=== PATIENT | male | born 1965 | race Caucasian/White ===

== ENCOUNTER 2020-12-17 10:27 | Emergency (ER) | payer SELFPAY ==
[2020-12-17] MEDS ORDERED: Ketorolac 30 MG/ML SDV IVPUSH ONE (10:51)
[2020-12-17] MEDS ORDERED: Sodium Chloride 0.9% 10 ML Syringe FLUSH PRN (10:51)
[2020-12-17] MEDS ORDERED: Sodium Chloride 0.9% 2.5 ML Syringe FLUSH PRN (10:51)
[2020-12-17] MEDS ORDERED: Sodium Chloride 0.9% 1,000 ML IV ONE (10:51)
--- NOTE | 2020-12-17 10:54 | EDM.PDOC ---
ED HPI GENERAL MEDICAL PROBLEM - General Chief Complaint: Abdominal Pain Stated Complaint: CHEST PAIN Time Seen by Provider: 12/17/20 10:38 Source of Information: Reports: Patient History Limitations: Reports: No Limitations - History of Present Illness INITIAL COMMENTS - FREE TEXT/NARRATIVE: HISTORY AND PHYSICAL: History of present illness: The patient is a 55-year-old male with no significant health history who presents to the emergency room with generalized abdominal pain for the last 4 days. The patient states that he has been having generalized abdominal pain for the last 4 to 5 months. Typically the pain lasts anywhere from 1 to 4 days and goes away on its own. He states that having a stool sometimes helps the pain or if he bends over or lays down the pain will ease up. Patient classifies the pain as a dull ache and states it moves all over his abdomen. His sister is here visiting and has been taking his blood pressure which they are also concerned about. Patient denies any fever, chills, headache, change in vision, syncope or near syncope. Denies any chest pain, back pain, shortness of breath or cough. Denies any nausea, vomiting, diarrhea, constipation or dysuria. Has not noted any blood in urine or stool. Patient has been eating and drinking appropriately. Review of systems: As per history of present illness and below otherwise all systems reviewed and negative. Past medical history: As per history of present illness and as reviewed below otherwise noncontributory. Surgical history: As per history of present illness and as reviewed below otherwise noncontributory. Social history: See social history for further information Family history: As per history of present illness and as reviewed below otherwise noncontributory. Physical exam: General: Well developed and well nourished. Alert and orientated x 3. Nontoxic in appearance and in no acute distress. Vital signs are stable and have been reviewed by me. Nursing notes were reviewed. HEENT: Atraumatic, normocephalic, pupils equal and reactive bilaterally, negative for conjunctival pallor or scleral icterus, mucous membranes moist, TMs normal bilaterally, throat clear, neck supple, nontender, trachea midline. No drooling or trismus noted. No meningeal signs. No hot potato voice noted. Lungs: Clear to auscultation bilaterally. No wheezes, rales, or rhonchi. Chest nontender. Normal work of breathing, no accessory muscles used. Heart: S1S2, regular rate and rhythm without overt murmur, gallops, or rubs. No JVD. No peripheral edema Abdomen: Firm, round, nontender. Normoactive bowel sounds. Negative for costovertebral tenderness. Noted reducible umbilical hernia. Skin: Intact, warm, dry. No lesions or rashes noted. Hematologic: No petechiae or purpra. Mucosa appropriate color and normal nail bed color and refill. Extremities: Atraumatic, moves all extremities per self without difficulty or deficits, negative for cords or calf pain. Neurovascular unremarkable. Neuro: Awake, alert, oriented. Cranial nerves II through XII unremarkable. Cerebellum unremarkable. Motor and sensory unremarkable throughout. Exam nonfocal. Psychiatric: Mood and affect are appropriate. Normal thought process. Answering questions appropriately. Notes: *This patient was seen and evaluated during the 2019 SARS-CoV-2 novel coronavirus pandemic period. Community viral transmission is ongoing at time of this encounter and the emergency department is operating under pandemic response procedures. The patient states that he does not have any primary care provider and has not seen anyone regarding his abdominal pain. His sister is visiting and would like for him to get it checked out. His physical exam is benign. He really has no abdominal tenderness and has an reducible umbilical hernia. He states this is long-term. The patient is agreeable to blood work and a CT. I will give him fluids and treat his pain with Toradol as the patient is allergic to codeine. 11:52 the patient's glucose is 222 and the patient does not have any history of diabetes. The patient states that he does drink a lot of sugary type fluid such as cola, and his alcohol. I have ordered an A1C and if elevated will start the patient on Metformin. The patient verbalizes understanding. Patient also states that his pain is much better. There is a delay in obtaining the abdominal CT due to other emergencies. The patient was educated on this. 13:05 The patient returned from CT with increase complaints of pain. I will order Dilaudid for his pain control. 13:54 the patient's A1c is 7.7 and I have advised him of these results. I will start the patient on Metformin 500 mg at bedtime. The patient will be put on the primary care follow-up list. Awaiting CT reading. 13:[address] IMPRESSION: 1. 4.7 cm fat containing anterior pelvic wall periumbilical hernia with the fat within this hernia containing fluid and soft tissue stranding suggesting it could be mildly inflamed. Clinical correlation recommended. No bowel loops extend into this hernia. 2. Moderate diffuse fatty infiltration of liver. 3. Few tiny nodules in the right lower lobe of the lung posteriorly likely benign. 4. Small fat containing bilateral inguinal hernias. Colonic diverticulosis without evidence diverticulitis. I spoke with Dr. Mcgraw regarding the patient's examination and lab work and CT results, Dr. Mcgraw will be coming to the ER to examine the patient. Upon telling the patient this the patient states that now his pain has migrated to his umbilical area. Dr. Mcgraw examined the patient and states the patient can be discharged and that the umbilical hernia does not need to be repaired at this time. I will discharge the patient with a prescription for Metformin to take at dinnertime. I will put him on a primary care follow-up list. I have done education on appropriate diabetic management with the patient. The patient is agreeable with the plan. I have talked with the patient about today's findings, in addition to providing specific details for plan of care. Reassessment at the time of disposition demonstrates that the patient is in no acute distress. The patient is stable for discharge, counseling was provided and we discussed in great detail signs and symptoms that would prompt them to return to the Emergency Department. Medication, follow up and supportive care measures were reviewed and discussed. Voices understanding and is agreeable to plan of care. Denies any further questions or concerns at this time. Diagnostics: CBC, CMP, lipase, UA, CT abdomen Therapeutics: Fluids, Toradol, Dilaudid Prescription: Metformin 500 mg p.o. at bedtime Impression: Umbilical hernia, abdominal pain, new-onset diabetes type 2 Plan: 1. You were evaluated today on an emergent basis. Your complaints of abdominal pain were evaluated with blood work and a abdominal CAT scan. Your blood work revealed you have type 2 diabetes. I am starting you on Metformin 500 mg by mouth to take with dinner. You need to follow-up with a primary care provider. I have put you on a list and you should expect a phone call sometime this coming week for a primary care provider follow-up. You need to stay away from sugar and any foods that contain sugar such as cola or even bread. You need to stay away from alcohol as this too can increase your blood sugar. You were evaluated for an umbilical hernia which was found to be reducible and does not need to be treated today. I have sent your prescription for Metformin over to the pharmacy. 2. You can alternate Tylenol and ibuprofen as needed for pain and fever management. 3. We encourage you to follow up with your primary care provider and/or recommended specialist in the next few days for re-evaluation and further ca re/management. 4. If your symptoms should worsen, new symptoms develop or any of the signs and symptoms we discussed should arise please return to the emergency room or call 911 (if needed). Definitive disposition and diagnosis as appropriate pending reevaluation and review of above. Abdominal Pain Score (Numeric/FACES): 8 - Related Data Allergies Allergy/AdvReac Type Severity Reaction Status Date / Time codeine Allergy Itching Verified 12/17/20 11:40 Home Meds: Home Meds metFORMIN [Glucophage XR] 500 mg PO WITHDINNER 30 Days #30 tab.er 12/17/20 [Rx] ED ROS GENERAL - Review of Systems Review Of Systems: Comprehensive ROS is negative, except as noted in HPI. ED EXAM, GI/ABD - Physical Exam Exam: See Below (See dictation) Course - Vital Signs Last Recorded V/S: Last Vital Signs Temp 96.8 F L 12/17/20 10:35 Pulse 62 12/17/20 15:17 Resp 16 12/17/20 15:17 BP 159/108 H 12/17/20 15:17 Pulse Ox 94 L 12/17/20 15:17 - Orders/Labs/Meds Orders: Active Orders 24 hr Category Date Time Status CULTURE URINE [MREF] Stat Lab 12/17/20 11:55 Received Saline Lock Insert [OM.PC] Stat Oth 12/17/20 10:51 Ordered Labs: Laboratory Tests 12/17/20 12/17/20 12/17/20 Range/Units 11:01 11:01 11:01 WBC 8.84 (4.0-11.0) K/uL RBC 4.90 (4.50-5.90) M/uL Hgb 16.4 (13.0-17.0) g/dL Hct 48.8 (38.0-50.0) % MCV 99.6 H (80.0-98.0) fL MCH 33.5 H (27.0-32.0) pg MCHC 33.6 (31.0-37.0) g/dL RDW Std Deviation 47.4 (28.0-62.0) fl RDW Coeff of Akil 13 (11.0-15.0) % Plt Count 166 (150-400) K/uL MPV 11.20 (7.40-12.00) fL Neut % (Auto) 67.1 (48.0-80.0) % Lymph % (Auto) 18.3 (16.0-40.0) % [place] % (Auto) 9.4 (0.0-15.0) % Eos % (Auto) 4.5 (0.0-7.0) % Baso % (Auto) 0.7 (0.0-1.5) % Neut # (Auto) 5.9 H (1.4-5.7) K/uL Lymph # (Auto) 1.6 (0.6-2.4) K/uL [place] # (Auto) 0.8 (0.0-0.8) K/uL Eos # (Auto) 0.4 (0.0-0.7) K/uL Baso # (Auto) 0.1 (0.0-0.1) K/uL Nucleated RBC % 0.0 /100WBC Nucleated RBCs # 0 K/uL Sodium 136 (136-148) mmol/L Potassium 4.2 (3.5-5.1) mmol/L Chloride 100 (98-107) mmol/L Carbon Dioxide 28.8 (21.0-32.0) mmol/L BUN 17 (7.0-18.0) mg/dL Creatinine 1.2 (0.8-1.3) mg/dL Est Cr Clr Drug Dosing TNP Estimated GFR (MDRD) > 60.0 ml/min Glucose 222 H (74-106) mg/dL Hemoglobin A1c 7.7 H (4.5 - 6.2) % Calcium 8.6 (8.5-10.1) mg/dL Total Bilirubin 0.5 (0.2-1.0) mg/dL AST 35 (15-37) IU/L ALT 69 H (14-63) IU/L Alkaline Phosphatase 88 (46-116) U/L Total Protein 7.3 (6.4-8.2) g/dL Albumin 3.3 L (3.4-5.0) g/dL Globulin 4.0 (2.6-4.0) g/dL Albumin/Globulin Ratio 0.8 L (0.9-1.6) Lipase 76 (73-393) U/L Urine Color Urine Appearance Urine pH (5.0-8.0) Ur Specific [place] (1.001-1.035) Urine Protein (NEGATIVE) mg/dL Urine Glucose (UA) (NEGATIVE) mg/dL Urine Ketones (NEGATIVE) mg/dL Urine Occult Blood (NEGATIVE) Urine Nitrite (NEGATIVE) Urine Bilirubin (NEGATIVE) Urine Urobilinogen (<2.0) EU/dL Ur Leukocyte Esterase (NEGATIVE) Urine RBC (0-2/HPF) Urine WBC (0-5/HPF) Ur Epithelial Cells (NONE-FEW) Urine Bacteria (NEGATIVE) 12/17/20 Range/Units 11:55 WBC (4.0-11.0) K/uL RBC (4.50-5.90) M/uL Hgb (13.0-17.0) g/dL Hct (38.0-50.0) % MCV (80.0-98.0) fL MCH (27.0-32.0) pg MCHC (31.0-37.0) g/dL RDW Std Deviation (28.0-62.0) fl RDW Coeff of Akil (11.0-15.0) % Plt Count (150-400) K/uL MPV (7.40-12.00) fL Neut % (Auto) (48.0-80.0) % Lymph % (Auto) (16.0-40.0) % [place] % (Auto) (0.0-15.0) % Eos % (Auto) (0.0-7.0) % Baso % (Auto) (0.0-1.5) % Neut # (Auto) (1.4-5.7) K/uL Lymph # (Auto) (0.6-2.4) K/uL [place] # (Auto) (0.0-0.8) K/uL Eos # (Auto) (0.0-0.7) K/uL Baso # (Auto) (0.0-0.1) K/uL Nucleated RBC % /100WBC Nucleated RBCs # K/uL Sodium (136-148) mmol/L Potassium (3.5-5.1) mmol/L Chloride (98-107) mmol/L Carbon Dioxide (21.0-32.0) mmol/L BUN (7.0-18.0) mg/dL Creatinine (0.8-1.3) mg/dL Est Cr Clr Drug Dosing Estimated GFR (MDRD) ml/min Glucose (74-106) mg/dL Hemoglobin A1c (4.5 - 6.2) % Calcium (8.5-10.1) mg/dL Total Bilirubin (0.2-1.0) mg/dL AST (15-37) IU/L ALT (14-63) IU/L Alkaline Phosphatase (46-116) U/L Total Protein (6.4-8.2) g/dL Albumin (3.4-5.0) g/dL Globulin (2.6-4.0) g/dL Albumin/Globulin Ratio (0.9-1.6) Lipase (73-393) U/L Urine Color YELLOW Urine Appearance CLEAR Urine pH 6.0 (5.0-8.0) Ur Specific [place] 1.020 (1.001-1.035) Urine Protein NEGATIVE (NEGATIVE) mg/dL Urine Glucose (UA) NEGATIVE (NEGATIVE) mg/dL Urine Ketones NEGATIVE (NEGATIVE) mg/dL Urine Occult Blood NEGATIVE (NEGATIVE) Urine Nitrite NEGATIVE (NEGATIVE) Urine Bilirubin NEGATIVE (NEGATIVE) Urine Urobilinogen 0.2 (<2.0) EU/dL Ur Leukocyte Esterase SMALL H (NEGATIVE) Urine RBC 0-2 (0-2/HPF) Urine WBC 0-2 (0-5/HPF) Ur Epithelial Cells RARE (NONE-FEW) Urine Bacteria RARE (NEGATIVE) Meds: Medications Discontinued Medications Generic Name Dose Route Start Last Admin Trade Name Freq PRN Reason Stop Dose Admin Diphenhydramine HCl 50 mg 12/17/20 13:34 12/17/20 13:53 Diphenhydramine 50 Mg/Ml Sdv IVPUSH 12/17/20 13:35 50 mg ONETIME ONE Administration Sodium Chloride 1,000 mls @ 999 mls/hr 12/17/20 10:51 12/17/20 11:09 Normal Saline IV 12/17/20 11:51 999 mls/hr BOLUS ONE Administration Iopamidol 100 ml 12/17/20 13:04 12/17/20 13:05 Iopamidol 755 Mg/Ml 500 Ml Multipack Bottle IVPUSH 12/17/20 13:05 100 ml ONETIME ONE Administration Ketorolac Tromethamine 30 mg 12/17/20 10:51 12/17/20 11:09 Ketorolac 30 Mg/Ml Sdv IVPUSH 12/17/20 10:52 30 mg ONETIME ONE Administration Morphine Sulfate 2 mg 12/17/20 13:24 12/17/20 13:52 Morphine 2 Mg/Ml Syringe IVPUSH 12/17/20 13:25 2 mg ONETIME ONE Administration Sodium Chloride 10 ml 12/17/20 10:51 12/17/20 12:23 Sodium Chloride 0.9% 10 Ml Syringe FLUSH 10 ml ASDIRECTED PRN Administration Keep Vein Open Sodium Chloride 2.5 ml 12/17/20 10:51 12/17/20 12:23 Sodium Chloride 0.9% 2.5 Ml Syringe FLUSH 2.5 ml ASDIRECTED PRN Administration Keep Vein Open Departure - Departure Time of Disposition: 15:00 Disposition: Home, Self-Care 01 Condition: Good Clinical Impression: Diabetes Qualifiers: Diabetes mellitus type: type 2 Diabetes mellitus exterminator helper termite insulin use: with exterminator helper termite use Diabetes mellitus complication status: without complication Qualified Code(s): E11.9 - Type 2 diabetes mellitus without complications; Z79.4 - buttermaker helper (current) use of insulin Umbilical hernia Qualifiers: Obstruction and gangrene presence: without obstruction or gangrene Qualified Code(s): K42.9 - Umbilical hernia without obstruction or gangrene Abdominal pain Qualifiers: Abdominal location: generalized Qualified Code(s): R10.84 - Generalized abdominal pain - Discharge Information *PRESCRIPTION DRUG MONITORING PROGRAM REVIEWED*: Not Applicable *COPY OF PRESCRIPTION DRUG MONITORING REPORT IN PATIENT MAYA: Not Applicable Prescriptions: metFORMIN [Glucophage XR] 500 mg PO WITHDINNER 30 Days #30 tab.er Instructions: Umbilical Hernia, Adult, Type 2 Diabetes Mellitus, Diagnosis, Adult, Diabetes Mellitus and Foot Care Referrals: PCP,None [Primary Care Provider] - Forms: ED Department Discharge Additional Instructions: The following information is given to patients seen in the emergency department who are being discharged to home. This information is to outline your options for follow-up care. We provide all patients seen in our emergency department with a follow-up referral. The need for follow-up, as well as the timing and circumstances, are variable depending upon the specifics of your emergency department visit. If you don't have a primary care physician on staff, we will provide you with a referral. We always advise you to contact your personal physician following an emergency department visit to inform them of the circumstance of the visit and for follow-up with them and/or the need for any referrals to a consulting specialist. The emergency department will also refer you to a specialist when appropriate. This referral assures that you have the opportunity for follow-up care with a specialist. All of these measure are taken in an effort to provide you with optimal care, which includes your follow-up. Under all circumstances we always encourage you to contact your private physician who remains a resource for coordinating your care. When calling for follow-up care, please make the office aware that this follow-up is from your recent emergency room visit. If for any reason you are refused follow-up, please contact the [facility] Emergency Department at and asked to speak to the emergency department charge nurse. [facility] - Primary Care [address] [place] [address] [facility] [address] [place] [id number] Plan: 1. You were evaluated today on an emergent basis. Your complaints of abdominal pain were evaluated with blood work and a abdominal CAT scan. Your blood work revealed you have type 2 diabetes. I am starting you on Metformin 500 mg by mouth to take with dinner. You need to follow-up with a primary care provider. I have put you on a list and you should expect a phone call sometime this coming week for a primary care provider follow-up. You need to stay away from sugar and any foods that contain sugar such as cola or even bread. You need to stay away from alcohol as this too can increase your blood sugar. You were evaluated for an umbilical hernia which was found to be reducible and does not need to be treated today. I have sent your prescription for Metformin over to the pharmacy. 2. You can alternate Tylenol and ibuprofen as needed for pain and fever management. 3. We encourage you to follow up with your primary care provider and/or recommended specialist in the next few days for re-evaluation and further care/management. 4. If your symptoms should worsen, new symptoms develop or any of the signs and symptoms we discussed should arise please return to the emergency room or call 911 (if needed). Sepsis Event Note (ED) - Focused Exam Vital Signs: Vital Signs Temp Pulse Resp BP Pulse Ox 12/17/20 15:17 62 16 159/108 H 94 L 12/17/20 13:54 69 16 154/116 H 95 12/17/20 10:35 96.8 F L 86 20 174/94 H 93 L - My Orders Last 24 Hours: My Active Orders 12/17/20 10:51 Saline Lock Insert [OM.PC] Stat 12/17/20 11:55 CULTURE URINE [MREF] Stat - Assessment/Plan Last 24 Hours: My Active Orders 12/17/20 10:51 Saline Lock Insert [OM.PC] Stat 12/17/20 11:55 CULTURE URINE [MREF] Stat
[2020-12-17 11:26] LABS: BLOOD UREA NITROGEN,BUN 17 mg/dL (7.0-18.0); CARBON DIOXIDE,CO2 28.8 mmol/L (21.0-32.0); CHLORIDE,CL 100 mmol/L (98-107); GLUCOSE RANDOM 222 mg/dL (74-106); LIPASE 76 U/L (73-393); POTASSIUM,K 4.2 mmol/L (3.5-5.1); SODIUM,NA 136 mmol/L (136-148)
[2020-12-17] MEDS ORDERED: Iopamidol 755 MG/ML 500 ML Multipack Bottle IVPUSH ONE (13:04)
[2020-12-17] MEDS ORDERED: Morphine 2 MG/ML SYRINGE IVPUSH ONE (13:24)
[2020-12-17] MEDS ORDERED: diphenhydrAMINE 50 MG/ML SDV IVPUSH ONE (13:34)
[2020-12-17 13:41] LABS: HEMOGLOBIN A1C 7.7 %
--- NOTE | 2020-12-17 13:56 | CT ---
INDICATION: Abdominal pain for 1 year. Pain in the periumbilical region. TECHNIQUE: CT of abdomen and pelvis performed after IV injection of 100 mL of Isovue-370. FINDINGS: Mild atelectasis and scarring in the lung bases. Few very tiny nodules in the right lower lobe posteriorly is likely benign. Moderate diffuse infiltration of the liver with segmental area of fatty sparing in the right hepatic lobe. Very small cysts in the kidneys. Subcutaneous edema back. Scattered small to upper limits of normal mid and lower external iliac chain pelvic lymph nodes. Small left greater than right fat containing bilateral inguinal hernias. Colonic diverticulosis. Appendix within normal limits. Moderate-sized fat containing anterior pelvic wall hernia measures 4.7 x 4.2 cm. Fluid and stranding in the fat in this hernia which could suggest that it is mildly inflamed. No small bowel loops in this hernia. The hernia causes the umbilicus to be anteriorly convex. Appendix is normal. Remainder negative. IMPRESSION: 1. 4.7 cm fat containing anterior pelvic wall periumbilical hernia with the fat within this hernia containing fluid and soft tissue stranding suggesting it could be mildly inflamed. Clinical correlation recommended. No bowel loops extend into this hernia. 2. Moderate diffuse fatty infiltration of liver. 3. Few tiny nodules in the right lower lobe of the lung posteriorly likely benign. 4. Small fat containing bilateral inguinal hernias. Colonic diverticulosis without evidence diverticulitis. Please note that all CT scans at this facility use dose modulation, iterative reconstruction, and/or weight-based dosing when appropriate to reduce radiation dose to as low as reasonably achievable. Dictated by Zheng Gallego MD @ 12/17/2020 1:55:[address] Zheng Gallego @ Dec 17 2020 1:55PM
--- NOTE | 2020-12-17 14:43 | PCM.EKG ---
#1 Interpretation EKG Date: 12/17/20 Time: 10:28 Rhythm: NSR Rate (Beats/Min): 82 [place]: Normal P-Wave: Present QRS: Normal ST-T: Normal QT: Normal Comparison: NA - No Prior EKG EKG Interpretation Comments: Sinus Rhythm
--- NOTE | 2020-12-17 15:07 | PCM.CONS ---
H&P History of Present Illness - General Date of Service: 12/17/20 Admit Problem/Dx: Patient is a 55-year-old gentleman who presented to the emergency room today complaining of a one-year history of periumbilical discomfort. It has gotten worse the last 4-5 days. He denies any nausea or vomiting. No fever or chills. No unexplained weight loss. Source of Information: Patient History Limitations: Reports: No Limitations - History of Present Illness Location: Reports: Abdomen Quality: Reports: Pressure Improves with: Reports: Rest Worsens with: Reports: Movement Associated Symptoms: Reports: No Other Symptoms Abdominal Pain Score (Numeric/FACES): 8 - Related Data Allergies/Adverse Reactions: Allergies Allergy/AdvReac Type Severity Reaction Status Date / Time codeine Allergy Itching Verified 12/17/20 11:40 Home Medications: Home Meds metFORMIN [Glucophage XR] 500 mg PO WITHDINNER 30 Days #30 tab.er 12/17/20 [Rx] Past Medical History - Past Health History Medical/Surgical History: Denies Medical/Surgical History - Infectious Disease History Infectious Disease History: Reports: None Social & Family History - Tobacco Use Tobacco Use Status *Q: Current Every Day Tobacco User Years of Tobacco use: 45 Packs/Tins Daily: 1.5 - Caffeine Use Caffeine Use: Reports: None - Recreational Drug Use Recreational Drug Use: No H&P Review of Systems - Review of Systems: Review Of Systems: See Below General: Denies: Fever, Chills, Malaise, Weakness, Fatigue HEENT: Reports: No Symptoms Pulmonary: Reports: Other (Patient states he does have inhalers but has not refilled the prescription for years.). Denies: Shortness of Breath, Wheezing Cardiovascular: Denies: Chest Pain, Palpitations Gastrointestinal: Reports: Abdominal Pain. Denies: Black Stool, Bloody Stool, Constipation, Diarrhea, Nausea, Vomiting Musculoskeletal: Reports: No Symptoms Skin: Denies: Cyanosis, Jaundice, Mottled Psychiatric: Denies: Confusion, Depression Neurological: Denies: Confusion Hematologic/Lymphatic: Reports: No Symptoms Immunologic: Reports: No Symptoms Exam - Exam Exam: See Below - Vital Signs Vital Signs: Last Vital Signs Temp 96.8 F L 12/17/20 10:35 Pulse 69 12/17/20 13:54 Resp 16 12/17/20 13:54 BP 154/116 H 12/17/20 13:54 Pulse Ox 95 12/17/20 13:54 Weight: 265 lb - Exam General: Alert, Oriented, Cooperative, Mild Distress HEENT: Conjunctiva Clear, PERRLA Neck: Supple, Trachea Midline Lungs: Clear to Auscultation, Normal Respiratory Effort Cardiovascular: Regular Rate, Regular Rhythm GI/Abdominal Exam: Normal Bowel Sounds, Soft, Non-Tender, Hernia (Partially reducible umbilical hernia) (Male) Exam: Deferred Rectal (Males) Exam: Deferred Extremities: Normal Inspection Skin: Warm, Dry, Intact Neurological: Cranial Nerves Intact Neuro Extensive - Mental Status: Alert, Oriented x3, Normal Mood/Affect, Normal Cognition Psychiatric: Alert, Normal Affect, Normal Mood - Patient Data Lab Results Last 24 hrs: Laboratory Results - last 24 hr 12/17/20 12/17/20 12/17/20 Range/Units 11:01 11:01 11:01 WBC 8.84 (4.0-11.0) K/uL RBC 4.90 (4.50-5.90) M/uL Hgb 16.4 (13.0-17.0) g/dL Hct 48.8 (38.0-50.0) % MCV 99.6 H (80.0-98.0) fL MCH 33.5 H (27.0-32.0) pg MCHC 33.6 (31.0-37.0) g/dL RDW Std Deviation 47.4 (28.0-62.0) fl RDW Coeff of Akil 13 (11.0-15.0) % Plt Count 166 (150-400) K/uL MPV 11.20 (7.40-12.00) fL Neut % (Auto) 67.1 (48.0-80.0) % Lymph % (Auto) 18.3 (16.0-40.0) % [place] % (Auto) 9.4 (0.0-15.0) % Eos % (Auto) 4.5 (0.0-7.0) % Baso % (Auto) 0.7 (0.0-1.5) % Neut # (Auto) 5.9 H (1.4-5.7) K/uL Lymph # (Auto) 1.6 (0.6-2.4) K/uL [place] # (Auto) 0.8 (0.0-0.8) K/uL Eos # (Auto) 0.4 (0.0-0.7) K/uL Baso # (Auto) 0.1 (0.0-0.1) K/uL Nucleated RBC % 0.0 /100WBC Nucleated RBCs # 0 K/uL Sodium 136 (136-148) mmol/L Potassium 4.2 (3.5-5.1) mmol/L Chloride 100 (98-107) mmol/L Carbon Dioxide 28.8 (21.0-32.0) mmol/L BUN 17 (7.0-18.0) mg/dL Creatinine 1.2 (0.8-1.3) mg/dL Est Cr Clr Drug Dosing TNP Estimated GFR (MDRD) > 60.0 ml/min Glucose 222 H (74-106) mg/dL Hemoglobin A1c 7.7 H (4.5 - 6.2) % Calcium 8.6 (8.5-10.1) mg/dL Total Bilirubin 0.5 (0.2-1.0) mg/dL AST 35 (15-37) IU/L ALT 69 H (14-63) IU/L Alkaline Phosphatase 88 (46-116) U/L Total Protein 7.3 (6.4-8.2) g/dL Albumin 3.3 L (3.4-5.0) g/dL Globulin 4.0 (2.6-4.0) g/dL Albumin/Globulin Ratio 0.8 L (0.9-1.6) Lipase 76 (73-393) U/L Urine Color Urine Appearance Urine pH (5.0-8.0) Ur Specific [place] (1.001-1.035) Urine Protein (NEGATIVE) mg/dL Urine Glucose (UA) (NEGATIVE) mg/dL Urine Ketones (NEGATIVE) mg/dL Urine Occult Blood (NEGATIVE) Urine Nitrite (NEGATIVE) Urine Bilirubin (NEGATIVE) Urine Urobilinogen (<2.0) EU/dL Ur Leukocyte Esterase (NEGATIVE) Urine RBC (0-2/HPF) Urine WBC (0-5/HPF) Ur Epithelial Cells (NONE-FEW) Urine Bacteria (NEGATIVE) 12/17/20 Range/Units 11:55 WBC (4.0-11.0) K/uL RBC (4.50-5.90) M/uL Hgb (13.0-17.0) g/dL Hct (38.0-50.0) % MCV (80.0-98.0) fL MCH (27.0-32.0) pg MCHC (31.0-37.0) g/dL RDW Std Deviation (28.0-62.0) fl RDW Coeff of Akil (11.0-15.0) % Plt Count (150-400) K/uL MPV (7.40-12.00) fL Neut % (Auto) (48.0-80.0) % Lymph % (Auto) (16.0-40.0) % [place] % (Auto) (0.0-15.0) % Eos % (Auto) (0.0-7.0) % Baso % (Auto) (0.0-1.5) % Neut # (Auto) (1.4-5.7) K/uL Lymph # (Auto) (0.6-2.4) K/uL [place] # (Auto) (0.0-0.8) K/uL Eos # (Auto) (0.0-0.7) K/uL Baso # (Auto) (0.0-0.1) K/uL Nucleated RBC % /100WBC Nucleated RBCs # K/uL Sodium (136-148) mmol/L Potassium (3.5-5.1) mmol/L Chloride (98-107) mmol/L Carbon Dioxide (21.0-32.0) mmol/L BUN (7.0-18.0) mg/dL Creatinine (0.8-1.3) mg/dL Est Cr Clr Drug Dosing Estimated GFR (MDRD) ml/min Glucose (74-106) mg/dL Hemoglobin A1c (4.5 - 6.2) % Calcium (8.5-10.1) mg/dL Total Bilirubin (0.2-1.0) mg/dL AST (15-37) IU/L ALT (14-63) IU/L Alkaline Phosphatase (46-116) U/L Total Protein (6.4-8.2) g/dL Albumin (3.4-5.0) g/dL Globulin (2.6-4.0) g/dL Albumin/Globulin Ratio (0.9-1.6) Lipase (73-393) U/L Urine Color YELLOW Urine Appearance CLEAR Urine pH 6.0 (5.0-8.0) Ur Specific [place] 1.020 (1.001-1.035) Urine Protein NEGATIVE (NEGATIVE) mg/dL Urine Glucose (UA) NEGATIVE (NEGATIVE) mg/dL Urine Ketones NEGATIVE (NEGATIVE) mg/dL Urine Occult Blood NEGATIVE (NEGATIVE) Urine Nitrite NEGATIVE (NEGATIVE) Urine Bilirubin NEGATIVE (NEGATIVE) Urine Urobilinogen 0.2 (<2.0) EU/dL Ur Leukocyte Esterase SMALL H (NEGATIVE) Urine RBC 0-2 (0-2/HPF) Urine WBC 0-2 (0-5/HPF) Ur Epithelial Cells RARE (NONE-FEW) Urine Bacteria RARE (NEGATIVE) Result Diagrams: 12/17/20 11:01 12/17/20 11:01 Sepsis Event Note - Evaluation Sepsis Screening Result: No Definite Risk - Focused Exam Vital Signs: Vital Signs Temp Pulse Resp BP Pulse Ox 12/17/20 13:54 69 16 154/116 H 95 12/17/20 10:35 96.8 F L 86 20 174/94 H 93 L Consult PN Assessment/Plan (1) Diabetes SNOMED Code(s): 15935560 Code(s): E11.9 - TYPE 2 DIABETES MELLITUS WITHOUT COMPLICATIONS Priority: Medium Current Visit: Yes Qualifiers: Diabetes mellitus type: type 2 Diabetes mellitus long term care social worker insulin use: with long term care social worker use Diabetes mellitus complication status: without complication Qualified Code(s): E11.9 - Type 2 diabetes mellitus without complications; Z79.4 - ferry terminal agent (current) use of insulin (2) Umbilical hernia SNOMED Code(s): 139664000 Code(s): K42.9 - UMBILICAL HERNIA WITHOUT OBSTRUCTION OR GANGRENE Priority: Medium Current Visit: Yes Qualifiers: Obstruction and gangrene presence: without obstruction or gangrene Qualified Code(s): K42.9 - Umbilical hernia without obstruction or gangrene (3) Tobacco abuse SNOMED Code(s): 408781052 Code(s): Z72.0 - TOBACCO USE Priority: Medium Current Visit: Yes Problem List Initiated/Reviewed/Updated: Yes Plan: Patient does need to be evaluated in primary care/internal medicine for his newly diagnosed and untreated diabetes. Additionally, he needs to get on medica tion for his hypertension. He needs to quit smoking. I will see him in the office in 2-4 weeks for consideration for elective umbilical hernia repair.
== END 2020-12-17 15:18 | disposition home or self-care (01) ==
LOC: MW.ED 10:27
DX: K42.9 Umbilical hernia without obstruction or gangrene (principal); E11.9 Type 2 diabetes mellitus without complications; Z79.4 Long term (current) use of insulin; Z88.5 Allergy status to narcotic agent
CPT/HCPCS: 36415; 74177; 80053; 81001; 83036; 83690; 85025; 87086; 93005; 96374; 96375; 99284; J1200; J1885; J2270; J7030; Q9967